=== PATIENT | female | born 1950 | race Native Hawaiian/Other Pacific Islander ===

== ENCOUNTER 2017-01-08 18:17 | Inpatient (IN) | payer OTHER, MEDICARE ==
[~2017-01-08] VITALS: Ht 152.4 cm; Wt 69.2 kg
[2017-01-08] VITALS (8 sets, daily range): BP systolic 110–134; BP diastolic 53–86; PULSE 84–98; RESP 16–18; TEMP 97.2–98.4; O2SAT 98–100
[~2017-01-08 18:17] MED LIST: ATOR20TA15 PO; PRIL20CA9 PO
[2017-01-08] MEDS ORDERED: SODIUM CHLOR 0.9% 1000 ML INJ 1,000 ML IV SCH (18:54)
[2017-01-08] MEDS ORDERED: PRIL20TA2 PO (18:55)
[2017-01-08] MEDS ORDERED: LIPI40TA PO (18:55)
--- NOTE | 2017-01-08 18:56 | PD ---
HPI Chief Complaint: GI Complaint Time Seen by Provider: 18:37 Travel History International Travel<30 days: No Contact w/Intl Traveler<30days: No Traveled to known affect area: No History of Present Illness HPI This 66-year-old female says she been having burgundy red stools since last . She is feeling a bit weak and has dyspnea on exertion. She has a history of GI bleed in the past. She does have a history of coronary artery also but she is not on any blood thinners) she has been told not even to take aspirin. He apparently took an aspirin last Sunday in on the maroon stool started the next day. She has had upper endoscopy in December 2013 which showed gastritis. She has had colonoscopy in the past also. PFSH Past Medical History Hx Anticoagulant Therapy: No Arthritis: Yes (SPINE) Asthma: No Autoimmune Disease: No Heart Rhythm Problems: No Cancer: No Cardiovascular Problems: Yes (CARDIAC STENT PLACED 2001) High Cholesterol: Yes Chest Pain: Yes Congestive Heart Failure: No COPD: No Cerebrovascular Accident: No Coronary Artery Disease: Yes Diminished Hearing: No Endocrine: No Gastrointestinal Disorders: Yes GERD: Yes (TAKES PRILOSEC) Genitourinary: No Headaches: Yes Hepatitis: No Hiatal Hernia: No Hypertension: No Medical other: Yes (back pain) Musculoskeletal: Yes (TORN ROTATOR CUFF RIGHT SHOULDER,BULDGING LUMBAR DISCS) Neurologic: Yes (PINCHED NERVE LUMBAR SPINE) Psychiatric: No Reproductive: Yes (HYSTERECTOMY) Respiratory: No Migraines: No Myocardial Infarction: No Seizures: No Sleep Apnea: No Ulcer: Yes (gi bleed) Tetanus Vaccination: < 5 Years Influenza Vaccination: Yes ?: Not Menopausal: Yes : 10 Para: 4 Miscarriage: 6 Past Surgical History Abdominal Surgery: No Appendectomy: No Cardiac Surgery: Yes (STENT PLACEMENT, 2003) Cholecystectomy: Yes Coronary Stent: Yes (2001) Ear Surgery: No Endocrine Surgery: No Eye Surgery: No Genitourinary Surgery: No Gynecologic Surgery: Yes (HYSTERECTOMY) Hysterectomy: Yes (1998) Neurologic Surgery: No Oral Surgery: No Thoracic Surgery: No Other Surgery: Yes (BREAST REDUCTION 2004) Social History Alcohol Use: Yes (occas. mix drinks) Tobacco Use: No Substance Use: No Allergies-Medications (Allergen,Severity, Reaction): Coded Allergies: penicillin G (Unverified Allergy, Severe, Rash, 01/08/17) Reported Meds & Prescriptions Reported Meds & Active Scripts Active Reported Prilosec (Omeprazole Magnesium) 20 Mg Tab 1 Tab PO HS Lipitor (Atorvastatin Calcium) 40 Mg Tab 40 Mg PO HS Review of Systems General / Constitutional: No: Fever, Chills Eyes: No: Diploplia, Blurred Vision HENT: Positive: Lightheadedness, No: Headaches, Vertigo Cardiovascular: No: Chest Pain or Discomfort, Palpitations Respiratory: No: Cough, Shortness of Breath Gastrointestinal: Positive: Hematochezia Genitourinary: No: Urgency, Frequency Neurologic: Positive: Weakness Psychiatric: No: Anxiety, Depression Endocrine: No: Heat Intolerance Hematologic/Lymphatic: No: Easy Bruising Physical Exam Narrative GENERAL: Well-developed female SKIN: Focused skin assessment warm/dry. HEAD: Atraumatic. Normocephalic. EYES: Pupils equal and round. No scleral icterus. No injection or drainage. ENT: No nasal bleeding or discharge. Mucous membranes pink and moist. NECK: Trachea midline. No JVD. CARDIOVASCULAR: Regular rate and rhythm. No murmur appreciated. RESPIRATORY: No accessory muscle use. Clear to auscultation. Breath sounds equal bilaterally. GASTROINTESTINAL: Abdomen soft, non-tender, nondistended. Hepatic and splenic margins not palpable. Rectal exam there are no masses. Stool is dark and guaiac positive MUSCULOSKELETAL: No obvious deformities. No clubbing. No cyanosis. No edema. NEUROLOGICAL: Awake and alert. No obvious cranial nerve deficits. Motor grossly within normal limits. Normal speech. PSYCHIATRIC: Appropriate mood and affect; insight and judgment normal. Data Data Last Documented VS Vital Signs Date Time Temp Pulse Resp B/P (MAP) Pulse Ox O2 Delivery O2 Flow Rate FiO2 01/08/17 19:29 84 18 114/53 (73) 99 Room Air 01/08/17 18:25 98.4 Orders Orders Complete Blood Count With Diff (01/08/17 18:54) Comprehensive Metabolic Panel (01/08/17 18:54) Prothrombin Time / Inr (Pt) (01/08/17 18:54) Act Partial Throm Time (Ptt) (01/08/17 18:54) Urinalysis - C+S If Indicated (01/08/17 18:54) Type And Screen (01/08/17 18:54) Ecg Monitoring (01/08/17 18:54) Iv Access Insert/Monitor (01/08/17 18:54) Oximetry (01/08/17 18:54) Sodium Chlor 0.9% 1000 Ml Inj (Ns 1000 M (01/08/17 18:54) Sodium Chloride 0.9% Flush (Ns Flush) (01/08/17 19:00) Sodium Chloride 0.9... W/Pantoprazole In (01/08/17 20:54) Sodium Chloride 0.9... W/Pantoprazole In (01/08/17 20:54) Labs Laboratory Tests Test 01/08/17 19:13 White Blood Count 6.8 TH/MM3 Red Blood Count 2.97 MIL/MM3 Hemoglobin 9.2 GM/DL Hematocrit 27.2 % Mean Corpuscular Volume 91.5 FL Mean Corpuscular Hemoglobin 30.8 PG Mean Corpuscular Hemoglobin Concent 33.7 % Red Cell Distribution Width 12.3 % Platelet Count 188 TH/MM3 Mean Platelet Volume 9.4 FL Neutrophils (%) (Auto) 49.7 % Lymphocytes (%) (Auto) 40.6 % Monocytes (%) (Auto) 7.5 % Eosinophils (%) (Auto) 1.6 % Basophils (%) (Auto) 0.6 % Neutrophils # (Auto) 3.4 TH/MM3 Lymphocytes # (Auto) 2.8 TH/MM3 Monocytes # (Auto) 0.5 TH/MM3 Eosinophils # (Auto) 0.1 TH/MM3 Basophils # (Auto) 0.0 TH/MM3 CBC Comment DIFF FINAL Differential Comment Prothrombin Time 10.4 SEC Prothromb Time International Ratio 0.9 RATIO Activated Partial Thromboplast Time 24.0 SEC Urine Color YELLOW Urine Turbidity CLEAR Urine pH 5.5 Urine Specific [place] 1.012 Urine Protein NEG mg/dL Urine Glucose (UA) NEG mg/dL Urine Ketones NEG mg/dL Urine Occult Blood SMALL Urine Nitrite NEG Urine Bilirubin NEG Urine Leukocyte Esterase TRACE Urine RBC 0-3 /hpf Urine WBC 0-2 /hpf Urine Squamous Epithelial Cells 0-5 /hpf Microscopic Urinalysis Comment CULT NOT INDICATED Blood Urea Nitrogen 14 MG/DL Creatinine 0.55 MG/DL Random Glucose 101 MG/DL Total Protein 7.3 GM/DL Albumin 3.4 GM/DL Calcium Level 8.6 MG/DL Alkaline Phosphatase 84 U/L Aspartate Amino Transf (AST/SGOT) 21 U/L Alanine Aminotransferase (ALT/SGPT) 27 U/L Total Bilirubin 0.3 MG/DL Sodium Level 139 MEQ/L Potassium Level 3.5 MEQ/L Chloride Level 104 MEQ/L Carbon Dioxide Level 29.5 MEQ/L Anion Gap 6 MEQ/L Estimat Glomerular Filtration Rate 111 ML/MIN [facility] Medical Decision Making Medical Screen Exam Complete: Yes Emergency Medical Condition: Yes Medical Record Reviewed: Yes Differential Diagnosis Differential includes upper GI bleed, lower GI bleed, anemia Narrative Course Patient has black stool which is guaiac positive. Her hemoglobin now is 9.2. She has been started on Protonix. Her last hemoglobin that we have on file was 11.8 in September 2014 Diagnosis Primary Impression: GI bleed Qualified Codes: K92.2 - Gastrointestinal hemorrhage, unspecified Jason Tse MD Jan 08, 2017 18:56
[2017-01-08] MEDS ORDERED: SODIUM CHLORIDE 0.9% FLUSH 10 ML FLUSH IVF PRN (19:00)
[2017-01-08 19:22] LABS: AUTOMATED NEUTROPHIL # 3.4 TH/MM3 (1.8-7.7); BASOPHIL % 0.6 % (0.0-2.0); EOSINOPHIL # 0.1 TH/MM3 (0-0.4); EOSINOPHIL % 1.6 % (0.0-4.0); HEMATOCRIT 27.2 % (35.0-46.0); HEMO FLAGS DIFF FINAL; LYMPH % 40.6 % (9.0-44.0); LYMPHOCYTE # 2.8 TH/MM3 (1.0-4.8); MEAN CELL VOLUME 91.5 FL (80.0-100.0); MEAN CORPUSCULAR HEMOGLOBIN 30.8 PG (27.0-34.0); MEAN CORPUSCULAR HGB CONC 33.7 % (32.0-36.0); MONO % 7.5 % (0.0-8.0); NEUT % 49.7 % (16.0-70.0); PLATELET COUNT 188 TH/MM3 (150-450); RED BLOOD COUNT 2.97 MIL/MM3 (4.00-5.30); RED CELL DISTRIBUTION WIDTH 12.3 % (11.6-17.2); WHITE BLOOD COUNT 6.8 TH/MM3 (4.0-11.0)
[2017-01-08 19:27] LABS: BLOOD, URINE SMALL (NEG); GLUCOSE,URINE NEG (NEG); KETONE, URINE NEG (NEG); NITRITE,URINE NEG (NEG); PH, URINE 5.5 (5.0-8.5)
[2017-01-08 19:35] LABS: CHLORIDE 104 MEQ/L (98-107); POTASSIUM 3.5 MEQ/L (3.5-5.1); SODIUM (NA) 139 MEQ/L (136-145); URINE COLOR YELLOW (YELLW/STRAW)
[2017-01-08 19:36] LABS: COMMENT (UR) CULT NOT INDICATED; CULTURE IF INDICATED CULT NOT INDICATED; RBC, URINE 0-3 /hpf (0-3); SQUAMOUS EPITHELIAL CELL URINE 0-5 /hpf (0-5); WBC, URINE 0-2 /hpf (0-5)
[2017-01-08 19:38] LABS: ANION GAP 6 MEQ/L (5-15); BICARBONATE 29.5 MEQ/L (21.0-32.0); BLOOD UREA NITROGEN 14 MG/DL (7-18)
[2017-01-08 19:41] LABS: ALT (GPT) 27 U/L (10-53); AST (GOT) 21 U/L (15-37); GLOMERULAR FILTRATION RATE 111 ML/MIN (>89); INTERNATIONAL NORMALIZED RATIO 0.9 RATIO; PROTHROMBIN TIME - PATIENT 10.4 SEC (9.8-11.6)
[2017-01-08 19:43] LABS: TOTAL BILIRUBIN ADULT 0.3 MG/DL (0.2-1.0)
[2017-01-08 19:44] LABS: ALKALINE PHOSPHATASE 84 U/L (45-117)
[2017-01-08] MEDS: SODIUM CHLOR 0.9% 1000 ML INJ 1,000 ML IV SCH (20:23)
[2017-01-08] MEDS ORDERED: SODIUM CHLORIDE 0.9% FLUSH 10 ML FLUSH IV FLUSH PRN (20:30)
[2017-01-08] MEDS ORDERED: PANTOPRAZOLE INJ 80 MG in SODIUM CHLORIDE 0.9% INJ 35 ML IV ONE (20:54)
[2017-01-08] MEDS: PANTOPRAZOLE INJ 80 MG in SODIUM CHLORIDE 0.9% INJ 100 ML IV SCH (20:59)
[2017-01-08] MEDS: SODIUM CHLORIDE 0.9% FLUSH 10 ML FLUSH IV FLUSH SCH (21:00)
[2017-01-08 23:38] LABS: REVIEW FLAG FINAL
[2017-01-09] VITALS (12 sets, daily range): BP systolic 118–140; BP diastolic 71–82; PULSE 70–88; RESP 16–18; TEMP 95.7–98.6; O2SAT 96–100
[2017-01-09] MEDS ORDERED: ONDANSETRON HCL 4 MG/2 ML VIAL IV PUSH PRN (02:45)
[2017-01-09] MEDS: PANTOPRAZOLE INJ 80 MG in SODIUM CHLORIDE 0.9% INJ 100 ML IV SCH (06:21)
[2017-01-09 08:01] LABS: HEMATOCRIT 23.7 % (35.0-46.0); REVIEW FLAG FINAL
[2017-01-09] MEDS: SODIUM CHLORIDE 0.9% FLUSH 10 ML FLUSH IV FLUSH SCH ×2 (09:00→21:15)
[2017-01-09] MEDS: SODIUM CHLOR 0.9% 1000 ML INJ 1,000 ML IV SCH (10:41)
--- NOTE | 2017-01-09 11:10 | MB ---
cc: SRAVANTHI MUÑOZ MD,CJ LAZAR M.D. DATE OF CONSULTATION: 01/09/2017 DATE OF : 1950 REASON FOR CONSULTATION The patient is a 66-year-old white female who apparently for the last two days has complained of mid abdominal discomfort followed by episodes of burgundy stools, described as both black and red. She had a similar process in [address] Sotelo did an upper endoscopy and colonoscopy on the patient. She had mild esophageal gastritis and the colonoscopy revealed a nonspecific ulcer in the ascending colon that was not bleeding. The patient also had a capsule endoscopy which did not show anything significant either. She was then lost to follow-up. At this time it occurred after she took an aspirin for headache. She does not take any aspirin on a regular basis. The stools have not been diarrheal and she has not been constipated. There was no abdominal straining. There were no obvious provocative features or palliative features in regards to abdominal pain. There was no nausea, vomiting, dysphagia, early satiety or heartburn issues. Since being in the hospital she has had three bowel movements each one lessened and today there is only very minimal bleeding. Hemoglobin was 9.2 on admission then dropped to 8.2 then 7.8 this morning. PAST MEDICAL HISTORY 1. Epigastric pain. 2. GERD. 3. Fatty liver. 4. Colon polyps in the past. 5. An ulcer of the right ascending colon, biopsy benign. 6. Mild gastritis and esophagitis. 7. Coronary artery disease. 8. Possible peptic ulcer disease. 9. Arthritis. 10.Cardiac stenting. 11.Headaches. 12.Back pain. PAST SURGICAL HISTORY 1. Hysterectomy. 2. Some type of pinched nerve in the lumbar area. 3. Rotator cuff surgery. 4. Lumbar discs, surgery unclear. 5. Cardiac stenting. 6. Cholecystectomy. 7. Breast reduction surgery. ALLERGIES PENICILLIN. SOCIAL HISTORY She does not smoke. She drinks occasional alcohol. FAMILY HISTORY [place] in the father. No colon cancer or colon polyps in the family. MEDICATIONS Outpatient medications: 1. Lipitor. 2. Prilosec. REVIEW OF SYSTEMS CONSTITUTIONAL: No weight loss, fever or chills. CARDIOPULMONARY: No chest pain, palpitations, wheezing or shortness of breath. GASTROINTESTINAL: Please see above. Otherwise, an unremarkable 10-point review of systems. PHYSICAL EXAMINATION VITAL SIGNS: Blood pressure 120/73, pulse 88, respiratory rate 18, temperature 96.6. GENERAL: In general she is a 66-year-old female who appears her stated age. She is in acute GI distress. HEENT: Pupils are equal, round and react to light. No obvious scleral icterus. Oropharynx had dental caries. No tongue deviation or candidal lesion. Hearing is intact. NECK: Supple. No lymphadenopathy. LUNGS: Clear to auscultation and percussion. HEART: Regular rate and rhythm. No gross murmurs heard. ABDOMEN: Soft, nondistended, nontender. No organomegaly or masses. No CVA tenderness. EXTREMITIES: No clubbing, cyanosis or edema. NEUROLOGIC: Cranial nerves II through XII. No gross sensory or motor deficits. RECTAL: Exam is not done. The rectal exam done earlier in the emergency room revealed dark stools which were guaiac positive, but they did not classify what they meant by dark. LABORATORY DATA Hemoglobin 9.2, hematocrit 27.2, MCV 91.5, white blood cell count 6800. Hemoglobin dropped to 8.2 last night and 7.8 this morning. Pro-time 10.2, INR 0.9, PTT 24. BUN 14, creatinine 0.55. LFTs are normal with a total bilirubin 0.3, SGOT 21, SGPT 27, alk phos 84. IMPRESSION 1. Hematochezia - burgundy stools: We talked differential. She has had a previous upper endoscopy and colonoscopy in the past. The colonoscopy showed a colonic ulcer, biopsy benign. The upper endoscopy showed esophagitis and gastritis. This started after an aspirin, cannot rule out peptic ulcer disease or small bowel lesions. Chance of malignancy is small. This may be an AVM also. The bleeding appears to have slowed down. 2. Anemia; stable at this time. 3. History of chronic ulcer in the past as mentioned above. 4. Abdominal pain; improved at this time. RECOMMENDATIONS The patient appears to have stopped bleeding and she is doing better at this time. We talked about advancing her diet and see how she does, then bring her back as an outpatient to do an upper endoscopy and colonoscopy. At this time she is very adamant that it be done in the hospital. We will to get her on the schedule but I could not give her an exact time at this time. She needs to be prepped. She understands this. She needs to be on a liquid diet and she understands this also. We will go ahead and get the upper endoscopy and colonoscopy scheduled. We talked about the indications, risks, complications, benefits, complications including bleeding, perforation, infection, arrhythmias and small possibility of . She understands the risk of missed lesions, etc. She also understands that I will not be doing the case but my partner, Dr. Hinds, will hopefully do it tomorrow depending on what the schedule allows. Cj Hwang MD SP/BT /10:16 AM /10:30 AM
[2017-01-09] MEDS ORDERED: diphenhydrAMINE HCL 25 MG CAP PO PRN (12:00)
[2017-01-09] MEDS ORDERED: SODIUM CHLOR 0.9% 250 ML INJ 250 ML IV ONE (12:00)
[2017-01-09] MEDS ORDERED: ACETAMINOPHEN 325 MG TAB PO PRN (12:00)
--- NOTE | 2017-01-09 12:11 | HHI.HP ---
[facility] Service [place] [facility] Primary Care Physician Lulú Simon MD Admission Diagnosis GI BLEED Diagnoses: Chief Complaint: gi bleed Travel History International Travel<30 Days: No Contact w/Intl Traveler <30 Da: No Traveled to Known Affected Are: No History of Present Illness 66 year old female who has had gi bleed in the past who complains of intermittent severe GI bleed for 7 days. She has had this before without a known source. She had become anemic and Hg is 7.8 today. She has been seen by GI and recommended for endoscopy. Review of Systems Constitutional: DENIES: Diaphoretic episodes, Fatigue, Fever, Weight gain, Weight loss, Chills, Dizziness, Change in appetite, Night Sweats Endocrine: DENIES: Abnorml menstrual pattern, Heat/cold intolerance, Polydipsia , Polyuria, Polyphagia Eyes: DENIES: Blurred vision, Diplopia, Eye inflammation, Eye pain, Vision loss , Photosensitivity, Double Vision Respiratory: DENIES: Apneas, Cough, Snoring, Wheezing, Hemoptysis, Sputum production, Shortness of breath Cardiovascular: DENIES: Chest pain, Palpitations, Syncope, Dyspnea on Exertion , PND, Lower Extremity Edema, Orthopnea, Claudication Gastrointestinal: COMPLAINS OF: Abdominal pain, Bloody stools, DENIES: Black stools, Constipation, Diarrhea, Nausea, Vomiting, Difficulty Swallowing, Anorexia Genitourinary: DENIES: Abnormal vaginal bleeding, Dysmenorrhea, Dyspareunia, Sexual dysfunction, Urinary frequency, Urinary incontinence, Urgency, Hematuria , Dysuria, Nocturia, Vaginal discharge Musculoskeletal: DENIES: Joint pain, Muscle aches, Stiffness, Joint Swelling, Back pain, Neck pain Integumentary: DENIES: Abnormal pigmentation, Pruritus, Rash, Nail changes, Breast masses, Breast skin changes, Nipple discharge Hematologic/lymphatic: DENIES: Bruising, Lymphadenopathy Immunologic/allergic: DENIES: Eczema, Urticaria Neurologic: DENIES: Abnormal gait, Headache, Localized weakness, Paresthesias, Seizures, Speech Problems, Tremor, Poor Balance Psychiatric: DENIES: Anxiety, Confusion, Mood changes, Depression, Hallucinations, Agitation, Suicidal Ideation, Homicidal Ideation, Delusions Except as stated in HPI: all other systems reviewed are Neg Past Family Social History Past Medical History Hyperlipidemia gi bleed Past Surgical History hysterectomy Cardiac stent GB Reported Medications Reviewed in the EMR Allergies: Coded Allergies: penicillin G (Unverified Allergy, Severe, Rash, 01/08/17) Active Ordered Medications reviewed in the emr Family History htn Social History No tobacco No etoh Lives with family Physical Exam Vital Signs Vital Signs Date Time Temp Pulse Resp B/P (MAP) Pulse Ox O2 Delivery O2 Flow Rate FiO2 01/09/17 08:00 96.6 88 18 121/73 (89) 99 01/09/17 07:45 99 21 01/09/17 04:00 95.7 80 16 131/74 (93) 96 01/09/17 00:00 96.6 85 16 132/82 (99) 98 01/08/17 22:43 98 21 01/08/17 22:30 84 01/08/17 22:06 84 16 123/86 (98) 100 01/08/17 21:03 88 18 125/66 (85) 100 Room Air 01/08/17 20:00 97.2 85 16 110/75 (87) 98 01/08/17 19:29 84 18 114/53 (73) 99 Room Air 01/08/17 19:28 99 Room Air 01/08/17 18:44 16 01/08/17 18:25 98.4 98 16 134/64 (87) 99 Physical Exam GENERAL: This is a well-nourished, well-developed patient, in no apparent distress. SKIN: No rashes, ecchymoses or lesions. Cool and dry. HEAD: Atraumatic. Normocephalic. No temporal or scalp tenderness. EYES: Pupils equal round and reactive. Extraocular motions intact. No scleral icterus. No injection or drainage. ENT: Nose without bleeding, purulent drainage or septal hematoma. Throat without erythema, tonsillar hypertrophy or exudate. Uvula midline. Airway patent. NECK: Trachea midline. No JVD or lymphadenopathy. Supple, nontender, no meningeal signs. CARDIOVASCULAR: Regular rate and rhythm without murmurs, gallops, or rubs. RESPIRATORY: Clear to auscultation. Breath sounds equal bilaterally. No wheezes , rales, or rhonchi. GASTROINTESTINAL: Abdomen soft, non-tender, nondistended. No hepato-splenomegaly , or palpable masses. No guarding. MUSCULOSKELETAL: Extremities without clubbing, cyanosis, or edema. No joint tenderness, effusion, or edema noted. No calf tenderness. Negative Homans sign bilaterally. NEUROLOGICAL: Awake and alert. Cranial nerves II through XII intact. Motor and sensory grossly within normal limits. Five out of 5 muscle strength in all muscle groups. Normal speech. Laboratory Laboratory Tests Test 01/08/17 19:13 01/08/17 23:15 01/09/17 07:50 White Blood Count 6.8 Red Blood Count 2.97 Hemoglobin 9.2 8.2 7.8 Hematocrit 27.2 25.0 23.7 Mean Corpuscular Volume 91.5 Mean Corpuscular Hemoglobin 30.8 Mean Corpuscular Hemoglobin Concent 33.7 Red Cell Distribution Width 12.3 Platelet Count 188 Mean Platelet Volume 9.4 Neutrophils (%) (Auto) 49.7 Lymphocytes (%) (Auto) 40.6 Monocytes (%) (Auto) 7.5 Eosinophils (%) (Auto) 1.6 Basophils (%) (Auto) 0.6 Neutrophils # (Auto) 3.4 Lymphocytes # (Auto) 2.8 Monocytes # (Auto) 0.5 Eosinophils # (Auto) 0.1 Basophils # (Auto) 0.0 CBC Comment DIFF FINAL Differential Comment Prothrombin Time 10.4 Prothromb Time International Ratio 0.9 Activated Partial Thromboplast Time 24.0 Urine Color YELLOW Urine Turbidity CLEAR Urine pH 5.5 Urine Specific [place] 1.012 Urine Protein NEG Urine Glucose (UA) NEG Urine Ketones NEG Urine Occult Blood SMALL Urine Nitrite NEG Urine Bilirubin NEG Urine Leukocyte Esterase TRACE Urine RBC 0-3 Urine WBC 0-2 Urine Squamous Epithelial Cells 0-5 Microscopic Urinalysis Comment CULT NOT INDICATED Blood Urea Nitrogen 14 Creatinine 0.55 Random Glucose 101 Total Protein 7.3 Albumin 3.4 Calcium Level 8.6 Alkaline Phosphatase 84 Aspartate Amino Transf (AST/SGOT) 21 Alanine Aminotransferase (ALT/SGPT) 27 Total Bilirubin 0.3 Sodium Level 139 Potassium Level 3.5 Chloride Level 104 Carbon Dioxide Level 29.5 Anion Gap 6 Estimat Glomerular Filtration Rate 111 Result Diagram: 01/09/17 0750 01/08/171912 Caprini VTE Risk Assessment Caprini VTE Risk Assessment: No/Low Risk (score <= 1) VTE Pharm Contraindication: Active bleeding Caprini Risk Assessment Model Point Value = 1 Point Value = 2 Point Value = 3 Point Value = 5 Age 41-60 Minor surgery BMI > 25 kg/m2 Swollen legs Varicose veins or History of unexplained or recurrent spontaneous Oral contraceptives or hormone replacement Sepsis (< 1 month) Serious lung disease, including pneumonia (< 1 month) Abnormal pulmonary function Acute myocardial infarction Congestive heart failure (< 1 month) History of inflammatory bowel disease Medical patient at bed rest Age 61-74 Arthroscopic surgery Major open surgery (> 45 min) Laparoscopic surgery (> 45 min) Malignancy Confined to bed (> 72 hours) Immobilizing plaster cast Central venous access Age >= 75 History of VTE Family history of VTE Factor V Leiden Prothrombin [id number] Lupus anticoagulant Anticardiolipin antibodies Elevated serum homocysteine Heparin-induced thrombocytopenia Other congenital or acquired thrombophilia Stroke (< 1 month) Elective arthroplasty Hip, pelvis, or leg fracture Acute spinal cord injury (< 1 month) Prophylaxis Regimen Total Risk Factor Score Risk Level Prophylaxis Regimen 0-1 Low Early ambulation 2 Moderate Order ONE of the following: *Sequential Compression Device (SCD) *Heparin 5000 units SQ BID 3-4 Higher Order ONE of the following medications: *Heparin 5000 units SQ TID *Enoxaparin/Lovenox 40 mg SQ daily (WT < 150 kg, CrCl > 30 mL/min) *Enoxaparin/Lovenox 30 mg SQ daily (WT < 150 kg, CrCl > 10-29 mL/min) *Enoxaparin/Lovenox 30 mg SQ BID (WT < 150 kg, CrCl > 30 mL/min) AND/OR *Sequential Compression Device (SCD) 5 or more Highest Order ONE of the following medications: *Heparin 5000 units SQ TID (Preferred with Epidurals) *Enoxaparin/Lovenox 40 mg SQ daily (WT < 150 kg, CrCl > 30 mL/min) *Enoxaparin/Lovenox 30 mg SQ daily (WT < 150 kg, CrCl > 10-29 mL/min) *Enoxaparin/Lovenox 30 mg SQ BID (WT < 150 kg, CrCl > 30 mL/min) AND *Sequential Compression Device (SCD) Assessment and Plan Problem List: (1) GI bleed ICD Code: K92.2 - Gastrointestinal hemorrhage, unspecified Status: Acute Plan: With anemia due to GI bleed For endoscopy in am Physician Certification 2 Midnight Certification Type: Admission for Inpatient Services Order for Inpatient Services The services are ordered in accordance with Medicare regulations or non- Medicare payer requirements, as applicable. In the case of services not specified as inpatient-only, they are appropriately provided as inpatient services in accordance with the 2-midnight benchmark. Estimated LOS (days): 2 2 days is the estimated time the patient will need to remain in the hospital, assuming treatment plan goals are met and no additional complications. Post-Hospital Plan: Home Problem Qualifiers (1) GI bleed: Qualified Codes: K92.2 - Gastrointestinal hemorrhage, unspecified Elise Kelly MD Jan 09, 2017 12:11
[2017-01-09] MEDS: PANTOPRAZOLE 80 MG/100 ML NS IV SCH ×2 (16:41)
[2017-01-09] MEDS ORDERED: PEG (High)/E-LYTE SOLN 4000 ML BTL PO ONE (17:00)
[2017-01-09 20:43] LABS: HEMATOCRIT 31.2 % (35.0-46.0); REVIEW FLAG FINAL
[2017-01-09] MEDS ORDERED: ATORVASTATIN 40 MG TAB PO SCH (21:00)
[2017-01-10] VITALS (7 sets, daily range): BP systolic 117–151; BP diastolic 71–88; PULSE 67–96; RESP 16–18; TEMP 96.7–98.1; O2SAT 97–99
[2017-01-10] MEDS: PANTOPRAZOLE 80 MG/100 ML NS IV SCH ×4 (01:59→12:18)
[2017-01-10] MEDS: SODIUM CHLOR 0.9% 1000 ML INJ 1,000 ML IV SCH (05:06)
[2017-01-10] MEDS: SODIUM CHLORIDE 0.9% FLUSH 10 ML FLUSH IV FLUSH SCH (08:40)
[2017-01-10] MEDS ORDERED: PROPOFOL 200 MG/20 ML AMP IV ONE (14:20)
--- NOTE | 2017-01-10 14:51 | GIPROC ---
[facility] [address] [place] [address], [id number] EGD PROCEDURE REPORT EXAM DATE: 01/10/2017 PATIENT NAME: Serafin Dangelo MR #: [id number] BIRTHDATE: 1950 ATTENDING: Shar Hinds MD ORDER #: [id number] MACHINE ACCOUNTANT: Karuna Jones and Cora Shell STATUS: inpatient INDICATIONS: The patient is a 66 yr old female here for an EGD due to melena PROCEDURE PERFORMED: EGD, diagnostic MEDICATIONS: None and Per Anesthesia. TOPICAL ANESTHETIC: none CONSENT: The patient understands the risks and benefits of the procedure and understands that these risks include, but are not limited to: sedation, allergic reaction, infection, perforation and/or bleeding. Alternative means of evaluation and treatment include, among others: physical exam, x-rays, and/or surgical intervention. The patient elects to proceed with this endoscopic procedure. medical equipment was checked for proper function. Hand hygiene and appropriate measures for infection prevention was taken. After the risks, benefits and alternatives of the procedure were thoroughly explained, Informed consent was verified, confirmed and timeout was successfully executed by the treatment team. The patient was anesthetized with topical anesthesia and the Pentax [id number] endoscope was introduced through the mouth and advanced to the third portion of the duodenum. Retroflexion was performed and was normal The gastroscope was then slowly withdrawn and removed. ESOPHAGUS: The mucosa of the esophagus appeared normal. STOMACH: The mucosa of the stomach appeared normal. DUODENUM: The duodenal mucosa appeared normal. ADVERSE EVENTS: There were no complications. IMPRESSIONS: 1. The esophagus appeared normal 2. The mucosa of the stomach appeared normal 3. Normal duodenal mucosa 4. Retroflexion was performed and was normal RECOMMENDATIONS: Colonoscopy PATIENT CONDITION: stable DISPOSITION: Inpatient REPEAT EXAM: NONE Shar Hinds MD eSigned: Shar Hinds MD 01/10/2017 2:51 PM cc: PATIENT NAME: Serafin Dangelo MR#: [id number]
--- NOTE | 2017-01-10 14:58 | HHI.DCPOC ---
Discharge Care Plan Diagnosis: (1) GI bleed Goals to Promote Your Health * To prevent worsening of your condition and complications * To maintain your health at the optimal level Directions to Meet Your Goals Take your medications as prescribed Follow your dietary instruction Follow activity as directed Keep your appointments as scheduled Take your immunizations and boosters as scheduled If your symptoms worsen call your PCP, if no PCP go to Urgent Care Center or Emergency Room Smoking is Dangerous to Your Health. Avoid second hand smoke Call the 24-hour hour crisis hotline for domestic abuse at Elise Kelly MD Jan 10, 2017 14:58
--- NOTE | 2017-01-10 15:00 | HHI.DS ---
Discharge Summary Admission Date Jan 08, 2017 at 20:26 Discharge Date: Jan 10, 2017 Admitting Diagnosis GI BLEED (1) GI bleed ICD Code: K92.2 - Gastrointestinal hemorrhage, unspecified Status: Acute Procedures panendoscopy Brief History - From Admission 66 year old female who has had gi bleed in the past who complains of intermittent severe GI bleed for 7 days. She has had this before without a known source. She had become anemic and Hg is 7.8 today. She has been seen by GI and recommended for endoscopy. CBC/BMP: 01/09/17 2020 01/08/17 1913 Significant Findings Laboratory Tests Test 01/08/17 19:13 01/08/17 23:15 01/09/17 07:50 01/09/17 20:20 Red Blood Count 2.97 MIL/MM3 (4.00-5.30) Hemoglobin 9.2 GM/DL (11.6-15.3) 8.2 GM/DL (11.6-15.3) 7.8 GM/DL (11.6-15.3) 10.4 GM/DL (11.6-15.3) Hematocrit 27.2 % (35.0-46.0) 25.0 % (35.0-46.0) 23.7 % (35.0-46.0) 31.2 % (35.0-46.0) Activated Partial Thromboplast Time 24.0 SEC (24.3-30.1) Urine Occult Blood SMALL (NEG) Urine Leukocyte Esterase TRACE (NEG) PE at Discharge GENERAL: This is a well-nourished, well-developed patient, in no apparent distress. CARDIOVASCULAR: Regular rate and rhythm without murmurs, gallops, or rubs. RESPIRATORY: Clear to auscultation. Breath sounds equal bilaterally. No wheezes , rales, or rhonchi. GASTROINTESTINAL: Abdomen soft, non-tender, nondistended. Normal active bowel sounds MUSCULOSKELETAL: Extremities without clubbing, cyanosis, or edema. NEURO: Alert & Oriented x4 to person, place, time, situation. Moves all ext x4 Hospital Course Patient was seen and evaluated for GI bleeding with anemia. Bleeding had stopped by the time she was admitted although her hemoglobin was quite low and she required blood transfusion. This was given her hemoglobin corrected. She did have upper and lower endoscopy without any source of bleeding found. Patient was instructed to follow-up with her primary hedis analyst Dr. Cisneros and as well as her primary care physician Dr. Simon Pt Condition on Discharge: Good Discharge Disposition: Discharge Home Discharge Time: <= 30 minutes Discharge Instructions DIET: Follow Instructions for: As Tolerated, No Restrictions Activities you can perform: Regular-No Restrictions Follow up Referrals: Gastroenterology with Aditya Cisneros MD Continued Medications: Atorvastatin (Lipitor) 40 Mg Tab 40 MG PO HS for Cholesterol Management, #30 TAB 0 Refills Omeprazole Magnesium (Prilosec) 20 Mg Tab 1 TAB PO HS Elise Kelly MD Jan 10, 2017 15:00
--- NOTE | 2017-01-10 15:01 | GIPROC ---
[facility] [address] [place] [address], [id number] COLONOSCOPY PROCEDURE REPORT EXAM DATE: 01/10/2017 PATIENT NAME: Serafin Dangelo MR #: [id number] BIRTHDATE: 1950 ENDOSCOPIST: Shar Hinds MD ORDER #: [id number] RN ED: Cora Shell and Karuna Jones STATUS: inpatient INDICATIONS: The patient is a 66 yr old female here for a colonoscopy due to melena PROCEDURE PERFORMED: Colonoscopy with biopsy Colonoscopy with polypectomy MEDICATIONS: None and Per Anesthesia. PREP QUALITY: excellent ESTIMATED BLOOD LOSS: None CONSENT: The patient understands the risks and benefits of the procedure and understands that these risks include, but are not limited to: sedation, allergic reaction, infection, perforation and/or bleeding. Alternative means of evaluation and treatment include, among others: physical exam, x-rays, and/or surgical intervention. The patient elects to proceed with this endoscopic procedure. medical equipment was checked for proper function. Hand hygiene and appropriate measures for infection prevention was taken. After the risks, benefits and alternatives of the procedure were thoroughly explained, Informed consent was verified, confirmed and timeout was successfully executed by the treatment team. A digital exam revealed no abnormalities of the rectum The Pentax [id number] endoscope was introduced through the anus and advanced to the terminal ileum which was intubated for a short distance. The instrument was then slowly withdrawn as the colon was fully examined. COLON FINDINGS: A polypoid shaped sessile polyp measuring 5 mm in size was found in the proximal ascending colon. A polypectomy was performed using snare cautery. The resection was complete and the polyp tissue was completely retrieved. Two polypoid shaped sessile polyps ranging between 3-5mm in size were found in the ascending traverse colon. A polypectomy was performed using snare cautery. The resection was complete and the polyp tissue was completely retrieved. A single non-bleeding non-bleeding, shallow and clean-based ulcer, ranging between 3-5 mm in size, was found in the ascending colon. Biopsies were taken at edge of the ulcer. A smooth sessile polyp ranging between 5-9mm in size with a mucous cap was found in the proximal transverse colon. A polypectomy was performed using snare cautery. The resection was complete and the polyp tissue was completely retrieved. The colon mucosa was otherwise normal. Retroflexion was not performed The scope was then completely withdrawn from the patient and the procedure terminated. PROCEDURE WITHDRAWAL TIME:14minutes ADVERSE EVENTS: There were no complications. IMPRESSIONS: 1. A sessile polyp measuring 5 mm in size was found in the proximal ascending colon; polypectomy was performed using snare cautery 2. Two sessile polyps ranging between 3-5mm in size were found in the ascending traverse colon; polypectomy was performed using snare cautery 3. Single non-bleeding ulcer, ranging between 3-5 mm in size, was found in the ascending colon; biopsies were taken 4. A sessile polyp ranging between 5-9mm in size was found in the proximal transverse colon; polypectomy was performed using snare cautery 5. The colon mucosa was otherwise normal 6. Retroflexion was not performed 7. Revealed no abnormalities of the rectum RECOMMENDATIONS: Await biopsy results. Biopsy results will not be ready for 7-10 days. If you don't hear from us in two weeks, call our office for results. RECALL: Return 3 years Colonoscopy Shar Hinds MD eSigned: Shar Hinds MD 01/10/2017 3:01 PM cc: PATIENT NAME: Serafin Dangelo MR#: [id number]
== END 2017-01-10 17:00 | disposition home or self-care (01) | DRG 378 ==
LOC: PHED 18:17 → PHEDA 20:26 → PH3B 22:00
PROVIDERS: ADMIT Hospitalist; ATTEND Hospitalist
PROC: 30233N1 Transfusion of Nonautologous Red Blood Cells into Peripheral Vein, Percutaneous Approach (ICD-10-PCS; principal; 2017-01-09)
PROC: 0DBL8ZX Excision of Transverse Colon, Via Natural or Artificial Opening Endoscopic, Diagnostic (ICD-10-PCS; 2017-01-10)
PROC: 0DBK8ZX Excision of Ascending Colon, Via Natural or Artificial Opening Endoscopic, Diagnostic (ICD-10-PCS; 2017-01-10)
PROC: 0DJ08ZZ Inspection of Upper Intestinal Tract, Via Natural or Artificial Opening Endoscopic (ICD-10-PCS; 2017-01-10)
PROC: 0DBK8ZX Excision of Ascending Colon, Via Natural or Artificial Opening Endoscopic, Diagnostic (ICD-10-PCS; 2017-01-10 14:00)
DX: K92.2 Gastrointestinal hemorrhage, unspecified (principal); K63.3 Ulcer of intestine; K63.5 Polyp of colon; D50.0 Iron deficiency anemia secondary to blood loss (chronic); K21.0 Gastro-esophageal reflux disease with esophagitis; Z86.010 Personal history of colon polyps; I25.10 Atherosclerotic heart disease of native coronary artery without angina pectoris; Z95.5 Presence of coronary angioplasty implant and graft; M19.90 Unspecified osteoarthritis, unspecified site
CPT/HCPCS: 36430; 76937; 80053; 81001; 85014; 85018; 85025; 85610; 85730; 86850; 86900; 86901; 86920; 88305; 96360; C9113; J7030; J7050; P9016